=== PATIENT | female | born 2000 ===

== ENCOUNTER 2023-01-19 19:41 | Outpatient (REF) | payer MEDICAID, SELFPAY ==
[2023-01-20 15:40] LABS: BV Int Neg Control Negative (Negative); BV Int Pos Control Positive (Positive)
== END 2023-01-19 19:42 | disposition home or self-care (01) ==
LOC: HO.HHCLNP 19:41
PROVIDERS: Visit Provider Nurse Practitioner Family
DX: B37.9 Candidiasis, unspecified (principal)
CPT/HCPCS: 87480; 87510; 87660

== ENCOUNTER 2023-02-22 17:28 | Outpatient (REF) | payer MEDICAID, SELFPAY | END 2023-02-22 17:29 | disposition home or self-care (01) | LOC: HO.HHCLNP 17:28 | PROVIDERS: Visit Provider Internal Medicine | DX: N89.8 Other specified noninflammatory disorders of vagina (principal) | CPT/HCPCS: 36415; 81513; 87086 ==